=== PATIENT | male | born 2000 | race African-American/Black ===

== ENCOUNTER 2019-12-01 13:55 | Emergency (ER) | payer SELFPAY ==
[~2019-12-01] VITALS: Ht 180.3 cm; Wt 77.2 kg
--- NOTE | 2019-12-01 14:45 | PHYS DOC ---
Past Medical History Past Medical History: Asthma (VANDANA AMBRIZ APRN) Past Surgical History: No Surgical History (VANDANA AMBRIZ APRN) Smoking Status: Never Smoker Alcohol Use: None (VANDANA AMBRIZ APRN) General Adult EDM: Chief Complaint: ASTHMA HPI: HPI: Patient is a 19 year old AA male who presents to the emergency department with reports of having problems with his asthma for the last week. Patient states he is out of an inhaler and he needs a refill of his albuterol inhaler. He denies any fever, cough, body aches, nausea, vomiting, diarrhea, abdominal pain, chills, fatigue, headaches, ear pain, or sore throat. He currently denies any pain. (VANDANA AMBRIZ APRN) Review of Systems: Review of Systems: Complete ROS is negative unless otherwise noted in HPI. (VANDANA AMBRIZ APRN) Heart Score: Risk Factors: Risk Factors: DM, Current or recent (<one month) smoker, HTN, HLP, family history of CAD, obesity. Risk Scores: Score 0 - 3: 2.5% MACE over next 6 weeks - Discharge Home Score 4 - 6: 20.3% MACE over next 6 weeks - Admit for Clinical Observation Score 7 - 10: 72.7% MACE over next 6 weeks - Early Invasive Strategies (VANDANA AMBRIZ APRN) Physical Exam: PE: Constitutional: Well developed, well nourished, no acute distress, non-toxic appearance. [] HENT: Normocephalic, atraumatic, bilateral external ears normal, oropharynx moist, no oral exudates, nose normal. [] Eyes: PERRLA, EOMI, conjunctiva normal, no discharge. [] Neck: Normal range of motion, no stridor. [] Cardiovascular:Heart rate regular rhythm, no murmur [] Lungs & Thorax: Bilateral breath sounds clear to auscultation with scattered expiratory wheezes, no retractions, no increased work of breathing, regular rate [] Skin: Warm, dry, no erythema, no rash. [] Back: No tenderness Extremities: No cyanosis, ROM intact, no edema. [] Neurologic: Alert and oriented X 3, no focal deficits noted. [] Psychologic: Affect normal, judgement normal, mood normal. [] (VANDANA AMBRIZ APRN) Current Patient Data: Vital Signs: Vital Signs Date Time Temp Pulse Resp B/P (MAP) Pulse Ox O2 Delivery O2 Flow Rate FiO2 12/01/19 14:10 98.0 68 17 133/70 (91) 98 Room Air 98.0 (VANDANA AMBRIZ APRN) EKG: EKG: [] (VANDANA AMBRIZ APRN) Radiology/Procedures: Radiology/Procedures: [] (VANDANA AMBRIZ APRN) Course & Med Decision Making: Course & Med Decision Making Pertinent Labs and Imaging studies reviewed. (See chart for details) [] (VANDANA AMBRIZ APRN) Dragon Disclaimer: Dragon Disclaimer: This electronic medical record was generated, in whole or in part, using a voice recognition dictation system. (VANDANA AMBRIZ APRN) Departure Departure Impression: Primary Impression: Medication refill Additional Impression: Asthma in adult without complication Qualified Codes: J45.20 - Mild intermittent asthma, uncomplicated Disposition: HOME, SELF-CARE Condition: STABLE Referrals: NO PCP (PCP) Patient Instructions: Asthma Prevention-Brief, Medication Refill, Emergency Department Additional Instructions: Fill the prescription(s) and use as directed. Recommend that you take 10 mg of generic Zyrtec (cetirizine) or Claritin at bedtime and use over the counter Flonase (fluticasone) nasal spray 2 sprays each nostril once daily in the morning. Avoid triggers such as smoke, fragrance, dust, and pollen. Follow-up with your primary care doctor if symptoms persist, return to the ER if symptoms worsen. Scripts Albuterol Sulfate (VENTOLIN HFA INHALER) 18 Gm Hfa.aer.ad 2 PUFF INH Q4HRS PRN for WHEEZING for 30 Days, #1 INHALER 0 Refills Prov: VANDANA AMBRIZ APRN 12/01/19 Attending Signature Attending Signature I have reviewed the PA/BRUSH CUTTER's note and plan of care. I was available for consultation as needed during the patient's visit in the emergency department. I agree with the clinical impression, plan, and disposition. (NATANAEL BERNAL DO) VANDANA AMBRIZ APRN Dec 01, 2019 14:45 NATANAEL BERNAL DO Dec 01, 2019 23:23
[2019-12-01] MEDS ORDERED: VENTOLIN HFA18 GM INH (14:48)
[2019-12-01 15:00] VITALS: BP 134/74
== END 2019-12-01 15:00 | disposition home or self-care (01) ==
LOC: ER 13:55
DX: J45.20 Mild intermittent asthma, uncomplicated (principal); Z76.0 Encounter for issue of repeat prescription
CPT/HCPCS: 99283